=== PATIENT | female | born 1990 | race Caucasian/White ===

== ENCOUNTER → 2018-03-29 | Outpatient (CLI) | payer SELFPAY ==
--- NOTE | 2018-03-29 12:17 | RADIOLOGY IMAGING REPORT ---
FACILITY: [facility] PATIENT NAME: Deb Johnson : 1990 MR: [id number] V: [id number] EXAM DATE: ORDERING PHYSICIAN: RHONDA NAZARIO TECHNOLOG[place] [facility] [place] : 1990 Visit/Account:[id number] Date of Sevice: 03/29/2018 EXAMINATION: Abdominal ultrasound complete: 03/29/2018 8:30 AM HISTORY: Remote history of abdominal trauma in 2005. Kicked by horse. Pain worsening. Patient give s history of spleen and kidney damage. COMPARISON STUDIES: None available FINDINGS: Gallbladder: no stones or sludge. Liver: Negative Common duct: 3 mm Pancreas: negative Spleen: negative Kidneys: No acute finding. Exophytic 5 cm lower pole cyst on the left. Upper abdominal aorta and IVC: negative Ascites: none IMPRESSION: 1. No significant acute finding. 2. Incidental exophytic 5 cm lower pole left renal cortical cyst. Report Dictated By: Wilder Dumont MD at 03/29/2018 12:10 PM Report E-Signed By: Wilder Dumont MD at 03/29/2018 12:14 PM WSN:[email or web address]
== END ==
LOC: US 08:37
PROVIDERS: ATTEND Nurse Practitioner Family
DX: N28.1 Cyst of kidney, acquired (principal)
CPT/HCPCS: 76700

== ENCOUNTER → 2018-04-26 | Outpatient (CLI) | payer SELFPAY ==
--- NOTE | 2018-04-26 18:26 | EKG ---
[place] [facility] [place] NAME: NICOLASA COLBERT : [id number] MR: [id number] V: [id number] EXAM DATE: ORDERING PHYSICIAN: PARDEEP PAL TECHNOLOGIST: JOCELYNN Test Reason : R00.8, R53.83 Blood Pressure : / mmHG Vent. Rate : 046 BPM Atrial Rate : 046 BPM P-R Int : 162 ms QRS Dur : 088 ms QT Int : 462 ms P-R-T Axes : 038 046 057 degrees QTc Int : 404 ms Marked sinus bradycardia Abnormal ECG No previous ECGs available Confirmed by RICCI DUFFY ([id number]) on 04/27/2018 12:42:23 PM Referred By: ARAVIND Confirmed By:RICCI DUFFY
== END ==
LOC: RESP 16:00
PROVIDERS: ATTEND Nurse Practitioner Family
DX: R00.8 Other abnormalities of heart beat (principal); R53.83 Other fatigue; R94.31 Abnormal electrocardiogram [ECG] [EKG]
CPT/HCPCS: 93005